=== PATIENT | female | born 1990 | race Two or more races ===

== ENCOUNTER → 2017-12-21 | Outpatient (CLI) | payer OTHER ==
--- NOTE | 2017-12-21 13:52 | RADRPT ---
EXAM DATE/TIME: 12/21/2017 13:29 [facility] COMPARISON: No previous studies available for comparison. INDICATIONS : Back pain, scoliosis. MEDICAL HISTORY : None. SURGICAL HISTORY : None. ENCOUNTER: Initial ACUITY: 1 year PAIN SCORE: 5/10 LOCATION: Bilateral Middle thoracic spine. FINDINGS: There is normal alignment of the thoracic vertebral bodies. Vertebral body height is maintained. No evidence of fracture or subluxation. Pedicles are intact at all levels. The paravertebral reflecti ons are not thickened. History of previous surgery in the left upper quadrant. CONCLUSION: Negative MRI may be more sensitive.. Hayes Moses MD FACR on December 21, 2017 at 13:49 Board Certified Radiologist. This report was verified electronically.
--- NOTE | 2017-12-21 13:53 | RADRPT ---
EXAM DATE/TIME: 12/21/2017 13:31 [facility] COMPARISON: No previous studies available for comparison. INDICATIONS : Back pain, scoliosis. MEDICAL HISTORY : None. SURGICAL HISTORY : None. ENCOUNTER: Initial ACUITY: 1 year PAIN SCORE: 5/10 LOCATION: Bilateral Middle lumbar spine. FINDINGS: Two view examination was performed. There are five non-rib bearing vertebral bodies. The vertebral bodies are in normal alignment without evidence of subluxation or scoliosis. The disc spaces are filipe ntained. The pedicles are intact. Bony mineralization is normal. No fracture is identified. CONCLUSION: Negative. MRI may be more sensitive for subtle compression or inflammatory processes . Hayes Moses MD FACR on December 21, 2017 at 13:50 Board Certified Radiologist. This report was verified electronically.
== END ==
LOC: HRAD 12:56
DX: M41.9 Scoliosis, unspecified (principal)
CPT/HCPCS: 72070; 72100